=== PATIENT | male | born 1935 | race Caucasian/White ===

== ENCOUNTER 2016-12-18 20:29 | Emergency (ER) | payer SELFPAY ==
[~2016-12-18] VITALS: Ht 162.6 cm; Wt 57.0 kg
[2016-12-18 20:37] VITALS: Ht 162.6 cm; Wt 57.0 kg
[2016-12-18] MEDS ORDERED: HYDROCODONE/APAP (10/325) TAB PO ONE (22:00)
[2016-12-18] MEDS ORDERED: CEFAZOLIN 1 GM INJ IM ONE (22:00)
[2016-12-18] MEDS ORDERED: DIPHTH/TET/ACEL PERTUSS (ADULT) 0.5 ML VIAL IM* ONE (22:00)
[2016-12-18] MEDS ORDERED: LIDOCAINE 1% (MDV) 20 ML INJ SC ONE (22:00)
--- NOTE | 2016-12-18 22:12 | ERD ---
ER Documentation Chief Complaint Date/Time DATE: 12/18/16 TIME: 22:08 Chief Complaint laceration on right finger from work HPI 81-year-old male presents in emergency department for complaints of laceration wounds on both hands during accident at work today, hit a metal wire while working today. Patient had some of the skin avulsed on the finger some had open wounds. Patient is quite of pain throbbing pain excision scale, is . Patient is able to move the joints of both hands without any restriction. Patient denies any numbness or tingling. Patient denies taking any medications to help with symptoms. ROS All systems reviewed and are negative except as per history of present illness. Medications Home Meds Active Scripts Cephalexin* (Keflex*) 500 Mg Capsule, 500 MG PO QID for 10 Days, CAP Prov:HARLAN HANKS CLIENT SERVICE REPRESENTATIVE 12/19/16 Hydrocodone/Acetaminophen (Stambaugh 5-325 Tablet) 1 Each Tablet, 1 TAB PO Q6H Y for SEVERE PAIN LEVEL 7-10, #20 TAB Prov:HARLAN HANKS NP 12/19/16 Ibuprofen* (Motrin*) 600 Mg Tab, 600 MG PO Q6H Y for PAIN AND OR ELEVATED TEMP, #30 TAB Prov:HARLAN HANKS CLIENT SERVICE REPRESENTATIVE 12/19/16 Reported Medications [none] Unknown Strength No Conflict Check 12/18/16 Allergies Allergies: Coded Allergies: No Known Allergy (Unverified , 12/18/16) PMhx/Soc Medical and Surgical Hx: pt denies Medical Hx, pt denies Surgical Hx Hx Alcohol Use: No Hx Substance Use: No Hx Tobacco Use: No FmHx Family History: No coronary disease, No diabetes, No other Physical Exam Vitals Vital Signs Date Time Temp Pulse Resp B/P Pulse Ox O2 Delivery O2 Flow Rate FiO2 12/18/16 20:37 98.0 70 20 168/76 96 Physical Exam GENERAL: The patient is well developed and appropriate for usual state of health, in no apparent distress. CHEST: Clear to auscultation bilaterally. There are no rales, wheezes or rhonchi. HEART: Regular rate and rhythm. No murmurs, clicks, rubs or gallops. No S3 or S4. ABDOMEN: Soft, nontender and nondistended. Good bowel sounds. No rebound or guarding. No gross peritonitis. No gross organomegaly or masses. No Ernandez sign or McBurney point tenderness. BACK: No midline or flank tenderness. EXTREMITIES: Thin skin avulsion and amputation on the right second digit distal , open wound noted, bleeding controlled. Noted superficial lacerations his proximal to eat, 3.5 cm superficial laceration wound. Noted superficial laceration wound on the third finger of the right hand, 3 cm, noted skin avulsion on the left second finger on the tip distal phalanx, no deformity, no open wounds. Right third finger has no opening. No palpable foreign body. Equal pulses bilaterally. There is no peripheral clubbing, cyanosis or edema. No focal swelling or erythema. Full range of motion. Grossly neurovascularly intact. NEURO: Alert and oriented. Cranial nerves 2-12 intact. Motor strength in all 4 extremities with 5/5 strength. Sensation grossly intact. Normal speech and gait. SKIN: There is no apparent rash or petechia. The skin is warm and dry. HEMATOLOGIC AND LYMPHATIC: There is no evidence of excessive bruising or lymphedema. No gross cervical, axillary, or inguinal lymphadenopathy. Results 24 hrs Current Medications Medications (Trade) Dose Ordered Sig/Radha Route PRN Reason Start Time Stop Time Status Last Admin Dose Admin Diphtheria/ Tetanus/Acell Pertussis (Adacel) 0.5 ml ONCE ONCE IM* 12/18/16 22:00 12/18/16 22:01 DC 12/18/16 21:50 Cefazolin Sodium (Ancef) 1 gm ONCE ONCE IM 12/18/16 22:00 12/18/16 22:01 DC 12/18/16 21:49 Acetaminophen/ Hydrocodone Bitart (Stambaugh (10/325)) 1 tab ONCE ONCE PO 12/18/16 22:00 12/18/16 22:01 DC 12/18/16 21:57 Lidocaine (Xylocaine 1% (Mdv) 20 ml) 3 ml ONCE ONCE SC 12/18/16 22:00 12/18/16 22:01 DC Tdap was given to prevent tetanus. Patient tolerated medication well.Patient was given medication for pain here in emergency department, after treatment, patient verbalized feeling much better. Patient's pain is improved. Ancef was given to prevent infection of affected area. PROCEDURE: XR Hand. CLINICAL INDICATION: Finger laceration, pain. TECHNIQUE: PA, lateral, and oblique views of the bilateral hands. COMPARISON: None available. FINDINGS: Right hand: There is amputation of the second finger at the level of the distal phalanx shaft. 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 There is soft tissue swelling along the fingers. Left hand: No fracture or dislocation is identified. There is moderate degenerative arthrosis of the IP joints. There is soft tissue swelling along the fingers. A 1.5 mm metallic foreign body is seen within the ulnar soft tissues of the third finger at the level of the middle phalanx. IMPRESSION: 1. Amputation of the right second finger at the level of the distal phalanx shaft. 2. 1.5 mm metallic foreign body within the ulnar soft tissues of the left third finger at the level of the middle phalanx. 3. 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 RPTAT: HTAR .Ihsan Rogel MD, MD Date Time Electronically viewed and signed by .Ihsan Rogel MD, MD on 12/19/2016 00:13 .R/ CC: HARLAN HANKS CLIENT SERVICE REPRESENTATIVE Procedures/MDM Procedure Note: After obtaining informed consent, the wound was irrigated with 250 ml of normal saline and cleaned with diluted betadine. Using aseptic technique, the wound was approximated using a dermabond and Steri-Strips. After the procedure, the wound was well approximated. Patient tolerated procedure well. The skin avulsion/amputation was covered with nonstick dressing. Metal splint was applied on affected areas. Medical Decision Making: Patient's pain is most likely consistent with injury, laceration and skin avulsions and amputations. There is no suspicion for neurovascular compromise. Patient has intact sensation and circulation of the affected extremity. There is low suspicion for septic arthritis. Patient does not have any fever. Radiology exams of the affected area does not show any fracture or dislocation. There are foreign body noted on the left third finger nonspecific at this time, most likely not acute, no open wounds noted on affected area. Disposition: Home. Patient is given prescription for ibuprofen for pain, Stambaugh for severe pain, Keflex to prevent infection. Patient was advised to elevate the affected area and apply ice on affected area. Patient was advised that if symptoms are worse, numbness, tingling, high fever, unable to move joint, worsening symptoms, to return to emergency department immediately. Otherwise, patient is advised to follow up with the primary care doctor in 2 days for wound check, keep area dry, avoid wetting Dermabond and the area. Departure Diagnosis: Primary Impression: Traumatic amputation of digit of one hand without complication Additional Impressions: Avulsion of skin of finger Encounter type: initial encounter Qualified Code: S61.209A - Avulsion of skin of finger, initial encounter Finger laceration Encounter type: initial encounter Qualified Code: S61.219A - Finger laceration, initial encounter Condition: Stable Patient Instructions: Finger Tip Amputation, Open Treatment, Laceration, Extremity (Skin Glue), Skin Avulsion Additional Instructions: Patient is given prescription for ibuprofen for pain, Stambaugh for severe pain, Keflex to prevent infection. Patient was advised to elevate the affected area and apply ice on affected area. Patient was advised that if symptoms are worse , numbness, tingling, high fever, unable to move joint, worsening symptoms, to return to emergency department immediately. Otherwise, patient is advised to follow up with the primary care doctor in 2 days for wound check, keep area dry , avoid wetting Dermabond and the area. HARLAN HANKS NP Dec 18, 2016 22:12
--- NOTE | 2016-12-19 00:14 | RADRPT ---
PROCEDURE: XR Hand. CLINICAL INDICATION: Finger laceration, pain. TECHNIQUE: PA, lateral, and oblique views of the bilateral hands. COMPARISON: None available. FINDINGS: Right hand: There is amputation of the second finger at the level of the distal phalanx shaft. Mode rate to severe degenerative arthrosis of the IP joints is noted. There is soft tissue swelling along the fingers. Left hand: No fracture or dislocation is identified. There is moderate degenerative arthrosis of t he IP joints. There is soft tissue swelling along the fingers. A 1.5 mm metallic foreign body is see n within the ulnar soft tissues of the third finger at the level of the middle phalanx. IMPRESSION: 1. Amputation of the right second finger at the level of the distal phalanx shaft. 2. 1.5 mm metallic foreign body within the ulnar soft tissues of the left third finger at the level of the middle phalanx. 3. 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 RPTAT: HTAR .Ihsan Rogel MD, MD Date Time Electronically viewed and signed by .Ihsan Rogel MD, on 12/19/2016 00:13 .R/
[2016-12-19] MEDS ORDERED: IBUP-1542 PO (00:36)
[2016-12-19] MEDS ORDERED: HYDR-906 PO (00:36)
[2016-12-19] MEDS ORDERED: CEPH-443 PO (00:36)
[2016-12-19 00:51] VITALS: BP 180/86; PULSE 87; RESP 18; TEMP 96.8
== END 2016-12-19 00:51 | disposition home or self-care (01) ==
LOC: FTE 20:29
DX: S68.120A Partial traumatic metacarpophalangeal amputation of right index finger, initial encounter (principal); W28.XXXA Contact with powered lawn mower, initial encounter; Y92.89 Other specified places as the place of occurrence of the external cause; Z23 Encounter for immunization
CPT/HCPCS: 73130; 90471; 90715; 96372